=== PATIENT | male | born 1980 | race Caucasian/White ===

== ENCOUNTER 2017-02-17 10:14 | Inpatient (IN) | payer OTHER ==
[~2017-02-17] VITALS: Ht 165.1 cm; Wt 82.1 kg
[2017-02-17] MEDS ORDERED: MORPHINE SULFATE 4 MG/ML CPJ (NOT FOR IM USE) IV STA (10:55)
[2017-02-17] MEDS ORDERED: ONDANSETRON HCL 4MG/2ML VIAL IV STA (10:55)
[2017-02-17] MEDS ORDERED: IPRATROPIUM/ALBUTEROL 0.5-3(2.5)MG/3ML NEB HHN ONE (11:00)
[2017-02-17 11:28] LABS: BASOPHILS % 1.8 % (0.0-2.0); EOSINOPHILS % 8.3 % (0.0-5.0); HEMATOCRIT. 27.7 % (42.0-52.0); HEMOGLOBIN. 8.7 g/dL (14.0-18.0); LYMPHOCYTES % 22.2 % (20.0-50.0); MEAN CORPUSCULAR VOLUME 73.3 fL (80.0-94.0); MEAN PLATELET VOLUME 6.9 fl (7.4-10.4); MONOCYTES % 7.1 % (2.0-8.0); NEUTROPHILS % 60.6 % (40.0-76.0); PLATELET 228 x1000/uL (130-400); RED BLOOD CELL COUNT 3.77 mill/uL (4.7-6.1); RED CELL DISTRIBUTION WIDTH 16.7 % (11.6-14.6)
[2017-02-17 11:35] LABS: INR 1.1; PROTHROMBIN TIME 11.3 sec (9.4-11.6)
[2017-02-17 11:45] LABS: CARBON DIOXIDE 27 mEq/L (21-32); CHLORIDE 105 mEq/L (98-107); TROPONIN I < 0.02 ng/mL (0.00-0.04)
[2017-02-17] MEDS ORDERED: PIPERACILLIN/TAZ 3.375G PREMIX 50 ML IV ONE (13:30)
[2017-02-17] MEDS ORDERED: CLONIDINE 0.2MG TABLET PO ONE (13:30)
[2017-02-17] MEDS ORDERED: HYDRALAZINE 20MG/ML VIAL IV ONE ×2 (16:30→17:45)
[2017-02-17] MEDS: AMLODIPINE 10MG TABLET PO SCH (21:04)
[2017-02-17 22:00] VITALS: BP 182/90
[2017-02-17] MEDS ORDERED: NIFE-1 PO (22:41)
[2017-02-17] MEDS ORDERED: CALC667T5 PO (22:41)
[2017-02-17] MEDS ORDERED: ZOLP5TAB8 PO (22:41)
[2017-02-17] MEDS ORDERED: HYDR-3735 PO (22:41)
[2017-02-17] MEDS ORDERED: GABA-529 PO (22:41)
[2017-02-17] MEDS ORDERED: CLON0.1T PO (22:41)
[2017-02-17] MEDS ORDERED: NEPVIT PO (22:41)
[2017-02-17] MEDS ORDERED: ERGO500013 PO (22:41)
[2017-02-17] MEDS ORDERED: CALC0.253 PO (22:41)
[2017-02-17] MEDS ORDERED: HYDROXYZINE 25MG TABLET PO PRN (23:00)
[2017-02-17] MEDS ORDERED: ZOLPIDEM TARTRATE 5MG TABLET PO PRN (23:00)
[2017-02-17] MEDS ORDERED: CLONIDINE 0.1MG TABLET PO PRN (23:00)
[2017-02-17] MEDS ORDERED: HYDROCODONE/ACETAMINOPHEN 5/325MG TABLET PO PRN (23:00)
[2017-02-17] MEDS ORDERED: LORAZEPAM 2MG/ML CPJ IV PRN (23:00)
[2017-02-17] MEDS ORDERED: ONDANSETRON HCL 4MG/2ML VIAL IV PRN (23:00)
[2017-02-17] MEDS: MORPHINE SULFATE 2 MG/ML CPJ (NOT FOR IM USE) IV PRN (23:48)
[2017-02-17] MEDS: ENOXAPARIN 40MG/0.4ML SYR SUBCUT SCH (23:49)
[2017-02-18] VITALS (7 sets, daily range): BP systolic 146–184; BP diastolic 77–100
[2017-02-18] MEDS ORDERED: LEVOFLOXACIN 250MG PREMIX 50 ML IV SCH
[2017-02-18] MEDS: METRONIDAZOLE 500 MG PREMIX 100 ML IV SCH ×2 (01:49→11:00)
[2017-02-18] MEDS: MORPHINE SULFATE 2 MG/ML CPJ (NOT FOR IM USE) IV PRN ×3 (06:04→22:08)
[2017-02-18] MEDS ORDERED: IPRATROPIUM/ALBUTEROL 0.5-3(2.5)MG/3ML NEB HHN PRN (06:30)
[2017-02-18 06:50] LABS: BASOPHILS % 1.2 % (0.0-2.0); EOSINOPHILS % 1.7 % (0.0-5.0); HEMATOCRIT. 28.9 % (42.0-52.0); HEMOGLOBIN. 9.1 g/dL (14.0-18.0); LYMPHOCYTES % 13.1 % (20.0-50.0); MEAN PLATELET VOLUME 7.5 fl (7.4-10.4); MONOCYTES % 8.1 % (2.0-8.0); NEUTROPHILS % 75.9 % (40.0-76.0); PLATELET 280 x1000/uL (130-400); RED BLOOD CELL COUNT 3.95 mill/uL (4.7-6.1); RED CELL DISTRIBUTION WIDTH 16.7 % (11.6-14.6)
[2017-02-18 08:04] LABS: CARBON DIOXIDE 25 mEq/L (21-32); CHLORIDE 102 mEq/L (98-107)
[2017-02-18] MEDS ORDERED: HEPARIN SODIUM 1,000 UNIT/1ML VIAL IV NR (08:45)
[2017-02-18] MEDS: THIAMINE HCL 100MG TABLET PO SCH ×2 (09:00→13:46)
[2017-02-18] MEDS: CLONIDINE 0.1MG TABLET PO SCH ×3 (09:00→18:55)
[2017-02-18] MEDS: CALCITRIOL 0.25MCG CAPSULE PO SCH ×2 (09:00→13:44)
[2017-02-18] MEDS: FOLIC ACID/VITAMIN B COMP W-C TABLET PO SCH ×2 (09:00→13:46)
[2017-02-18] MEDS: AMLODIPINE 10MG TABLET PO SCH (09:00)
[2017-02-18] MEDS ORDERED: LISINOPRIL 40MG TABLET PO SCH (09:00)
[2017-02-18] MEDS ORDERED: SODIUM CHLORIDE 0.9% 1,000 ML IV SCH (09:15)
[2017-02-18] MEDS: CEFTRIAXONE 2 G in DEXTROSE 5% WATER 50 ML IV SCH ×2 (11:00→18:56)
[2017-02-18] MEDS ORDERED: CEFAZOLIN SODIUM 1000MG/VIAL IV SCH (13:30)
[2017-02-18] MEDS ORDERED: LISINOPRIL 40MG TABLET PO NR (13:45)
[2017-02-18] MEDS ORDERED: CEFAZOLIN 1000MG PREMIX 50 ML IV SCH (14:00)
[2017-02-18] MEDS ORDERED: CEFAZOLIN 1000MG PREMIX 50 ML IV PRN (16:00)
[2017-02-18] MEDS ORDERED: CEFAZOLIN SODIUM 500MG/VIAL IV ONE (16:30)
[2017-02-18] MEDS: GABAPENTIN 300MG CAPSULE PO SCH (21:00)
[2017-02-18] MEDS: METOPROLOL TARTRATE 50MG TABLET PO SCH (21:13)
[2017-02-18] MEDS: METRONIDAZOLE 500MG TABLET PO SCH (21:13)
[2017-02-18] MEDS: LISINOPRIL 40MG TABLET PO SCH (21:14)
[2017-02-18 21:27] LABS: CLARITY URINE CLEAR (CLEAR); COLOR URINE YELLOW (YELLOW); GLUCOSE URINE 1+ (NEGATIVE); KETONES URINE TRACE (NEGATIVE); LEUKOCYTE ESTERASE URINE NEGATIVE (NEGATIVE); NITRITE URINE NEGATIVE (NEGATIVE); OCCULT BLOOD URINE TRACE (NEGATIVE); PH URINE 7.5 (4.5-8.0); PROTEIN URINE 4+ (NEGATIVE); SPECIFIC GRAVITY URINE 1.023 (1.005-1.030); UROBILINOGEN URINE 0.2 E.U./dL (0.2-1.0)
[2017-02-18] MEDS: ENOXAPARIN 40MG/0.4ML SYR SUBCUT SCH (22:08)
[2017-02-19 00:21] VITALS: BP 148/86
[2017-02-19 04:00] VITALS: BP 152/87
[2017-02-19 07:42] LABS: BASOPHILS % 1.9 % (0.0-2.0); EOSINOPHILS % 6.1 % (0.0-5.0); HEMATOCRIT. 26.3 % (42.0-52.0); HEMOGLOBIN. 8.2 g/dL (14.0-18.0); LYMPHOCYTES % 30.3 % (20.0-50.0); MEAN CORPUSCULAR HEMOGLOBIN 22.7 pg (28.0-32.0); MEAN CORPUSCULAR VOLUME 72.7 fL (80.0-94.0); MEAN PLATELET VOLUME 7.2 fl (7.4-10.4); MONOCYTES % 13.1 % (2.0-8.0); NEUTROPHILS % 48.6 % (40.0-76.0); PLATELET 235 x1000/uL (130-400); RED BLOOD CELL COUNT 3.62 mill/uL (4.7-6.1)
[2017-02-19 08:00] VITALS: BP 137/87
[2017-02-19 08:55] LABS: PHOSPHORUS 6.8 mg/dL (2.5-4.9)
[2017-02-19] MEDS: CLONIDINE 0.1MG TABLET PO SCH ×2 (09:00→17:00)
[2017-02-19] MEDS: METOPROLOL TARTRATE 50MG TABLET PO SCH ×3 (09:00→20:51)
[2017-02-19] MEDS: AMLODIPINE 10MG TABLET PO SCH (10:04)
[2017-02-19] MEDS: CALCITRIOL 0.25MCG CAPSULE PO SCH (10:04)
[2017-02-19] MEDS: FOLIC ACID/VITAMIN B COMP W-C TABLET PO SCH (10:04)
[2017-02-19] MEDS: THIAMINE HCL 100MG TABLET PO SCH (10:04)
[2017-02-19] MEDS: LISINOPRIL 40MG TABLET PO SCH ×2 (10:05→20:50)
[2017-02-19] MEDS: METRONIDAZOLE 500MG TABLET PO SCH (10:10)
[2017-02-19] MEDS ORDERED: ENOXAPARIN 30MG/0.3ML SYR SUBCUT SCH ×2 (11:30→22:00)
[2017-02-19 12:00] VITALS: BP 144/75
[2017-02-19 16:00] VITALS: BP 129/50
[2017-02-19 20:00] VITALS: BP 128/67
[2017-02-19] MEDS: GABAPENTIN 300MG CAPSULE PO SCH (20:51)
[2017-02-20 00:20] VITALS: BP 133/70
[2017-02-20 04:15] VITALS: BP 145/79
[2017-02-20] MEDS: FOLIC ACID/VITAMIN B COMP W-C TABLET PO SCH (09:43)
[2017-02-20] MEDS: CALCITRIOL 0.25MCG CAPSULE PO SCH (09:44)
[2017-02-20] MEDS: THIAMINE HCL 100MG TABLET PO SCH (09:44)
[2017-02-20] MEDS: LISINOPRIL 40MG TABLET PO SCH (09:44)
[2017-02-20] MEDS: AMLODIPINE 10MG TABLET PO SCH (09:44)
[2017-02-20] MEDS: METOPROLOL TARTRATE 50MG TABLET PO SCH (09:45)
[2017-02-20] MEDS: CLONIDINE 0.1MG TABLET PO SCH (09:45)
[2017-02-20 12:12] VITALS: BP 128/79
[2017-02-21] MEDS ORDERED: CEFAZOLIN 2,000 MG in DEXT 5% WATER 100 ML IV SCH (09:00)
[2017-02-23] MEDS ORDERED: CEFAZOLIN 2,000 MG in DEXT 5% WATER 100 ML IV SCH (09:00)
[2017-02-23] MEDS ORDERED: ERGOCALCIFEROL 50000UNITS CAPSULE PO SCH (09:00)
[2017-02-25] MEDS ORDERED: CEFAZOLIN 3,000 MG in DEXT 5% WATER 100 ML IV SCH (09:00)
== END 2017-02-20 16:13 | disposition home or self-care (01) ==
LOC: ER 10:50 → EDBEDREQ 13:43 → SUPCPDRO 15:14 → ENRESERV 15:18 → CANRESERV 15:18 → ENRESERV 21:13 → 7WST 22:34
PROVIDERS: ADMIT Internal Medicine; ATTEND Internal Medicine
DX: K80.20 Calculus of gallbladder without cholecystitis without obstruction (principal); I33.0 Acute and subacute infective endocarditis; E43 Unspecified severe protein-calorie malnutrition; I12.0 Hypertensive chronic kidney disease with stage 5 chronic kidney disease or end stage renal disease; N18.6 End stage renal disease; E11.22 Type 2 diabetes mellitus with diabetic chronic kidney disease; I27.2 Other secondary pulmonary hypertension; E87.5 Hyperkalemia; B95.61 Methicillin susceptible Staphylococcus aureus infection as the cause of diseases classified elsewhere; D63.8 Anemia in other chronic diseases classified elsewhere; J45.909 Unspecified asthma, uncomplicated; M48.06 Spinal stenosis, lumbar region; M51.27 Other intervertebral disc displacement, lumbosacral region; Z79.899 Other long term (current) drug therapy; Z99.2 Dependence on renal dialysis; Z98.41 Cataract extraction status, right eye; Z98.42 Cataract extraction status, left eye; Z68.30 Body mass index [BMI] 30.0-30.9, adult
CPT/HCPCS: 36415; 71010; 72141; 72146; 72148; 74176; 76700; 78227; 80048; 80053; 81001; 82962; 83605; 83690; 83880; 84100; 84484; 85025; 85610; 87040; 87086; 93005; 93306; 94640; 96365; 96375; 96376; 97161; 99285; A9537; J0360; J0690; J0696; J1644; J1650; J1956; J2270; J2405; J2543; J3490; J7030; J7050; J7060; J7620